=== PATIENT | male | born 1975 | race Caucasian/White ===

== ENCOUNTER 2016-07-13 12:49 | Emergency (ER) | payer BC ==
[2016-07-13 14:11] VITALS: BP 127/78
[2016-07-13] MEDS ORDERED: Ibuprofen TAB* 600 MG PO ONE (14:12)
--- NOTE | 2016-07-13 14:31 | UC ---
Knee Pain HPI - HPI Summary HPI Summary: TWISTED LEFT KNEE YESTERDAY WHILE PLAYING [employer]. HEARD A POP. FEELS UNSTABLE AND LIMPS WHEN AMBULATING. HAS SOME SWELLING. NO PREVIOUS KNEE PATHOLOGY. . - History of Current Complaint Chief Complaint: UCLowerExtremity Stated Complaint: KNEE INJURY Time Seen by Provider: 07/13/16 14:12 Hx Obtained From: Patient Onset/Duration: Sudden Onset, Lasting Hours, Still Present Severity Initially: Mild Severity Currently: Mild Pain Intensity: 2 Pain Scale Used: 0-10 Numeric Character: Sharp Aggravating Factor(s): Movement Alleviating Factor(s): Rest Associated Signs And Symptoms: Positive: Swelling - Allergies/Home Medications Allergies/Adverse Reactions: Allergies Allergy/AdvReac Type Severity Reaction Status Date / Time No Known Allergies Allergy Verified 07/13/16 14:04 Home Medications: Home Medications NK [No Home Medications Reported] 07/13/16 [History Confirmed 07/13/16] PMH/Surg Hx/FS Hx/Imm Hx Previously Healthy: Yes - Surgical History Surgical History: Yes Surgery Procedure, Year, and Place: Appendix - Family History Known Family History: Negative: Blood Disorder - Social History Alcohol Use: Rare Substance Use Type: None Smoking Status (MU): Never Smoked Tobacco Review of Systems Constitutional: Negative Skin: Negative Respiratory: Negative Cardiovascular: Negative Gastrointestinal: Negative Musculoskeletal: Arthralgia, Decreased ROM, Edema All Other Systems Reviewed And Are Negative: Yes Physical Exam Triage Information Reviewed: Yes Appearance: Well-Appearing, No Pain Distress, Well-Nourished Vital Signs: Initial Vital Signs Temp 97.7 F 07/13/16 14:05 Pulse 59 07/13/16 14:05 Resp 18 07/13/16 14:05 BP 127/78 07/13/16 14:05 Pulse Ox 100 07/13/16 14:05 Vital Signs Reviewed: Yes Eyes: Positive: Conjunctiva Clear ENT: Positive: Hearing grossly normal Neck: Positive: Supple Respiratory: Positive: No respiratory distress, No accessory muscle use Cardiovascular: Positive: Pulses Normal Abdomen Description: Positive: Soft Musculoskeletal: Positive: ROM Limited @ - LEFT KNEE, Edema @ - LEFT KNEE, Other : - NO JOINT LINE TENDERNESS OR TENDERNESS OVER ANY BONY PROMINENCES. MCL AND LCL INTACT TO STRESS TESTING. NEG LACHMANS. NEG DRAWERS SIGNS. NEG MCMURRAYS. NEG PATELLAR APPREHENSION TEST. NO TENDERNESS OVER PATELLAR LIGAMENT OR QUADRICEPS TENDON. DECREASED ROM (FLEXION). Neurological: Positive: Alert Psychological: Positive: Age Appropriate Behavior Skin: Negative: rashes Knee Pain Course/Dx - Differential Dx/Diagnosis Provider Diagnoses: LEFT KNEE SPRAIN Discharge - Discharge Plan Condition: Stable Disposition: HOME Patient Education Materials: Knee Sprain (ED) Referrals: Kishor Crews MD [Primary Care Provider] - If Needed Estelle Purdy MD [Medical Doctor] - If Needed Additional Instructions: REST, ICE, COMPRESS, ELEVATE SEEK FOLLOW-UP WITH PCP OR ORTHO IF YOUR SYMPTOMS ARE NOT IMPROVING EXPECTED OVER THE NEXT 1-2 WEEKS.
== END 2016-07-13 14:45 | disposition home or self-care (01) ==
LOC: UCEAST 12:49
DX: S83.92XA Sprain of unspecified site of left knee, initial encounter (principal); W50.2XXA Accidental twist by another person, initial encounter; Y93.74 Activity, frisbee; Y92.9 Unspecified place or not applicable
CPT/HCPCS: 99212; A9270-GY; G0463

== ENCOUNTER 2018-04-14 06:18 | Day surgery (SDC) | payer OTHER ==
[~2018-04-14 06:18] MED LIST: Buffered Lidocaine 0.9% SYRIN* 5 ML/SYR SYRINGE INTRADERM ONE; Dexamethasone IV* 4 MG/ML 1 ML (4 MG) IV SLOW PU ONE; Famotidine IV* 10 MG/ML 2 ML (20 mg) IV ONE
[2018-04-14] MEDS ORDERED: ceFAZolin 2 GM PREMIX in ORs 2 GM/50 ML BAG IVPB ONE (06:25)
[2018-04-14] MEDS ORDERED: Dexamethasone IV* 4 MG/ML 1 ML (4 MG) ONE (06:25)
[2018-04-14] MEDS ORDERED: Famotidine IV* 10 MG/ML 2 ML (20 mg) ONE (06:26)
[2018-04-14] MEDS ORDERED: Lidocain 1% EPI 1:100,000 * 30 ML MDV ONE (07:02)
[2018-04-14] MEDS ORDERED: ROPIVACAINE 5 MG/ML 30 ML BTL (0.5%) ONE (07:03)
[2018-04-14] MEDS ORDERED: Midazolam* 1 MG/ML 5 ML VIAL (5 MG) ONE (07:07)
[2018-04-14] MEDS ORDERED: fentaNYL* 50 MCG/ML 5 ML VIAL (250 MCG VIAL) ONE (07:07)
[2018-04-14] MEDS ORDERED: HYDROcodone/ACETAMIN 5-325 MG* 1 TAB PO PRN (07:28)
[2018-04-14] MEDS ORDERED: fentaNYL* 50 MCG/ML 2 ML VIAL (100 MCG VIAL) IV PRN (07:28)
[2018-04-14] MEDS ORDERED: Naloxone* 0.4 MG/ML 1 ML VIAL IV PRN (07:28)
[2018-04-14] MEDS ORDERED: Acetaminophen TAB* 325 MG PO PRN (07:28)
[2018-04-14] MEDS ORDERED: DiMENhydriNATE IV* 50 MG/ML VIAL IV PUSH PRN (07:28)
[2018-04-14] MEDS ORDERED: Ketorolac INJ* 30 MG/ML 1 ML VIAL IV PRN (07:28)
[2018-04-14] MEDS ORDERED: Ondansetron INJ* 2 MG/ML VIAL IV PRN (07:28)
[2018-04-14] MEDS ORDERED: Morphine VIAL* 4 MG/ML VIAL (1 ml vial) IV PRN (07:28)
[2018-04-14] MEDS ORDERED: Propofol* 10 MG/ML 20 ML BTL IV PUSH ONE (08:03)
[2018-04-14] MEDS ORDERED: Lidocaine 2% PF * 5 ML VIAL ONE (08:03)
[2018-04-14] MEDS ORDERED: Ondansetron INJ* 2 MG/ML VIAL ONE (09:15)
[2018-04-14] MEDS ORDERED: Ketorolac INJ* 30 MG/ML 1 ML VIAL ONE (10:13)
[2018-04-14 11:12] VITALS: BP 118/77
--- NOTE | 2018-04-16 14:33 | OP ---
CC: Primary Care Physician, Kishor Crews MD * DATE OF OPERATION: 04/14/18 - [facility] DATE OF : 71 SURGEON: Lara Salmon MD HANGER OFF: DREW Ricardo ANESTHESIOLOGIST: Dr. Vargas. PRE-OP DIAGNOSIS: Left knee grade 3 anterior cruciate ligament rupture. POST-OP DIAGNOSIS: Left knee grade 3 anterior cruciate ligament rupture with medial and lateral meniscal tears. OPERATIVE PROCEDURE: Left knee arthroscopy with anterior cruciate ligament reconstruction using quad autograft and partial lateral and partial medial meniscectomy. COMPLICATIONS: None. ESTIMATED BLOOD LOSS: Minimal. TOURNIQUET TIME: 24 minutes on 250 mmHg. IMPLANTS USED: One Nuno and Nephew SoftSilk 7 x 20 and one 10 x 25 SoftSilk. INDICATIONS: Rudy Kerr is a 42-year-old male who has had a left knee ACL injury for some time. I initially saw him in August 2016. He has had persistent pain and instability as well as some catching and locking of the knee. He was elected to proceed with surgical treatment. Risks of surgery were discussed at length included but not limited to bleeding, infection, damage to nerves, vessels, surrounding structures, wound nonhealing, persistent pain, need for surgery, scarring, stiffness, incomplete relief of symptoms and risk of anesthesia. He was elected to proceed with surgical treatments. We discussed autograft versus allograft options. He elected to proceed with autograft specifically quadriceps. DESCRIPTION OF PROCEDURE: The patient was greeted in the preoperative area by the attending surgeon. Correct extremity was marked and consent was confirmed. The patient was brought back to the operating suite where he was placed in supine position on the operating room table. He then underwent general anesthesia with LMA intubation after which he was appropriately positioned on the operating table with a small cloud bag was placed at 90 degrees and a lateral post. The left leg was then prepped and draped in the usual sterile fashion beginning with chlorhexidine soap, scrub, and alcohol wipe and a final prep with ChloraPrep. A sterile tourniquet was placed on the upper left thigh. After appropriate surgical pause indicating side, site, procedure, and administration of antibiotics, the knee was intra-articularly injected with 1% lidocaine with epi. The limb was exsanguinated and tourniquet inflated to 250 mmHg. A midline incision was centered over the quadriceps tendon was then made using 15 blade. Soft tissue was carefully dissected to expose quadriceps tendon , which was then identified. The center 9 mm was then harvested in full thickness flaps using fresh 10 blade. The bone block was then harvested for a length of about 22 mm and width of 9 mm. The graft total length was harvested to allow for at least 8 cm in length. Once this was harvested, it was prepared on the back table by the assistant food service manager. The quadriceps tendon was then closed in full thickness flaps using 0 Vicryl suture by the attending surgeon. Once this was complete, the tourniquet was deflated for a total time of 24 minutes. Attention was then directed to the arthroscopic portion of the case. The anterolateral portal was made sharply with 11 blade. The scope was introduced to the joint. The joint was examined. There was evidence of a grade 3 ACL rupture. PCL was intact. Medial compartment was then evaluated. There were grade 0 to 1 changes in the medial femoral condyle and there was evidence for degenerative type of tear. There were grade 0 to 1 changes in the medial compartment. There was an unstable medial meniscal tear that was identified and debrided back using biters and franky. The knee was then placed in figure-4 position and the lateral meniscus was identified. Lateral compartment had grade 0 to 1 changes. There is fraying of the root as well as a small radial split tear in the white-white zone. This was debrided back using franky and biters. After the partial meniscectomy was complete, attention directed to femoral joint, which had grade 0 to 1 changes. There were no loose bodies in the gutter. The knee was then placed in 90 degrees and attention was directed to the ACL. There was remaining tibial stump, which was debrided back and was attached to the PCL. This was debrided back using franky and biters. The femoral condyle was then prepared in the usual fashion using electrocautery device and shaver was used to remove any excess soft tissue to identify the femoral portion of the ACL. This was then marked with starting awl. The scope was then changed to the medial compartment to localize and identify the appropriate position of the femoral tunnel as a reference point. At this point, attention was then directed to the tibial tunnel. The tip to tip guide was placed at approximately 50 degrees and 15 blade was used to make a separate incision in the tibia to allow for placement of the centered guidewire. Soft tissues were carefully elevated and the guidewire was then placed under arthroscopic and direct visualization. Once it was placed in the appropriate position, it was then overdrilled with size 10 mm full bore reamer. Excess bone was saved for later bone graft to the patellar defect. The tunnel was then carefully rasped to remove any loose tissue and debris. The carrot was then placed to prevent fluid egress and attention was directed to the femoral portion. The graft was completed and placed under 15 pounds of tension on the back table. The attention was directed to the femoral tunnel with the knee carefully hyperflexed in a Nuno and Nephew straight guide. The Beath pin was drilled in the center of the ACL. Once appropriate position was identified, the size 9 mm low profile reamer was then drilled to a depth of about 25 mm. All excess bone and debris was removed. Tunnel was evaluated and found to be in appropriate position with good back wall. Excess bone and debris was removed. The tunnel was then notched. A #2 FiberWire was then placed through the island end of the Beath pin and then passed through the femoral condyle and out in the lateral aspect of the knee. The sutures were then passed to enter the tibial tunnel and the attention was directed to the graft. The graft was brought to the operating table and was then passed under direct and arthroscopic visualization until it was well seated in the femoral tunnel. The graft was of good quality and robust graft. The graft was then secured using 7 x 20 mm SoftSilk screw with excellent purchase. The knee was then cycled approximately 20 times to remove any creep from the graft. The knee was taken to full extension and found to have no impingement anteriorly. The graft was then cycled approximately 20 times to remove any creep from the graft. After this was done, the scope was brought back into the joint and the graft was visualized and found to be in appropriate position. Once this was done, the knee was then placed in approximately 20 degrees of flexion with tension on the tibial sutures. The tibial portion of the graft was then secured using a 10 x 25 mm Biocomposite screw with excellent purchase. The knee was then taken through full range of motion and Michelle was assessed and found to be stable. The scope was brought back to the joint and visualized the graft. It was found to be in appropriate position. Final images were obtained. The wounds were copiously irrigated with sterile saline. Bone graft was placed in the superior patellar defect and oversewn with 0 Vicryl. The soft tissues were then closed in layers with 2-0 Vicryl and proximally closed with jacquie. The portals were closed with 3-0 nylon. The tibial wound was closed in layers using 2-0 Vicryl and 3-0 Monocryl. Sterile dressings were applied. The knee was intra- articularly injected with 0.2% ropivacaine. Sterile dressings, Cryo/Cuff and a hinged knee brace were then applied. He was then awoken up from anesthesia and transferred to PACU in stable condition. POSTOPERATIVE PLAN: He will be weightbearing as tolerated. Range of motion will begin with physical therapy this week. He will be discharged on pain medication. DVT prophylaxis was considered but deferred due to no previous or personal family history. I will see the patient back in approximately 6 to 8 days. [id number]/CPS #: [id number] MTDD
== END 2018-04-14 11:09 | disposition home or self-care (01) ==
LOC: OREAST 06:18
PROVIDERS: ATTEND Orthopaedic Surgery
DX: S83.512A Sprain of anterior cruciate ligament of left knee, initial encounter (principal); S83.282A Other tear of lateral meniscus, current injury, left knee, initial encounter; X58.XXXA Exposure to other specified factors, initial encounter; Y92.9 Unspecified place or not applicable
CPT/HCPCS: 88304; C1713; J0690; J1100; J1885; J2250; J2405; J2704; J2795; J3010

== ENCOUNTER 2018-04-24 11:28 | Emergency (ER) | payer OTHER ==
--- OUTSIDE RECORDS SUMMARY | 2018-04-24 12:05 | XMS REPORT ---
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 Kishor Crews MD Primary Care Physician Unavailable Payers Type Date Identification Numbers Payment Provider Subscriber Commercial Policy Number: [id number] [employer] Rudy Kerr PayID: [id number] [address] [place] [address] Medigap Part B Expires: 2017 Policy Number: [place] [facility] Rudy Kerr [id number] PayID: [id number] [address] [place] [address] Problems Date Description Provider Status Onset: 08/09/2016 Sprain of cruciate ligament of knee Lara Salmon MD Active Family History Date Family Member(s) Problem(s) Comments General No Current Problems Social History Type Date Description Comments 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 With 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 ETOH Use Drinks 5 Alcoholic Beverages Per Week Smoking Patient has never smoked Exercise Type/Frequency Exercises regularly Allergies, Adverse Reactions, Alerts Date Description Reaction Status Severity Comments 08/09/2016 NKDA active Medications Medication Date Status Form Strength Qnty SIG Indications Ordering Provider No Active 08/09/2016 Active Adri Guardado MD Vital Signs Date Vital Result Comment 04/08/2018 Height 72.25 inches 6'0.25" Weight 223.00 lb Heart Rate 60 /min BP Systolic 138 mmHg BP Diastolic 82 mmHg Body Temperature 98.2 F Pain Level 1 left knee BMI (Body Mass Index) 30.0 kg/m2 03/06/2018 Height 72.25 inches 6'0.25" Weight 223.00 lb BP Systolic 128 mmHg BP Diastolic 68 mmHg Respiratory Rate 18 /min Pain Level 3 BMI (Body Mass Index) 30.0 kg/m2 08/09/2016 Height 72.25 inches 6'0.25" Weight 223.00 lb Heart Rate 80 /min BP Systolic Sitting 110 mmHg BP Diastolic Sitting 68 mmHg Respiratory Rate 16 /min Body Temperature 98.0 F Pain Level 1 BMI (Body Mass Index) 30.0 kg/m2 Results Description No Information Procedures Description No Information Encounters Type Date Location Provider CPT E/M Dx Office Visit 03/06/2018 [facility] [place] [address] S83.512A 2:45p [facility] Office Visit 08/09/2016 [facility] [place] [address] S83.512A 9:30a [facility] Plan of Care Future Appointment(s):04/24/2018 8:30 am - Lara Salmon MD at [facility]04/14/2018 7:30 am - Jasmin Kaiser PA-C at [facility]04/14/2018 7:30 am - Lara Salmon MD at [facility]
--- OUTSIDE RECORDS SUMMARY | 2018-04-24 12:05 | XMS REPORT ---
:1975 External Reference #:[id number] Author Organization [employer] Address [address] [place] [address] [place] [address] Phone [phone] Care Team Providers Name Role Phone Kishor Crews MD Primary Care Physician Unavailable Payers Type Date Identification Numbers Payment Provider Subscriber Commercial Policy Number: [id number] [employer] Mika Castellanos PayID: [id number] [address] [place] [address] Medigap Part B Expires: 2017 Policy Number: 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 ETOH Use Drinks 5 Alcoholic Beverages Per Week Smoking Patient has never smoked Exercise Type/Frequency Exercises regularly Allergies, Adverse Reactions, Alerts Date Description Reaction Status Severity Comments 08/09/2016 NKDA active Medications Medication Date Status Form Strength Qnty SIG Indications Ordering Provider Keflex Active Capsules 500mg 12caps take 1 Lara 018 tab by MD Luis Antonio mouth four times a day x 3 days Percocet Active Tablets 5-325mg 15tabs 1 tabs by Lara 018 mouth MD Luis Antonio every 4-6 hours as needed pain No Active Hx Deannaneb Medications 017 - MD Luis Antonio 018 Vital Signs Date Vital Result Comment 04/24/2018 Height 72.25 inches 6'0.25" Weight 223.00 lb BP Systolic 132 mmHg BP Diastolic 80 mmHg Respiratory Rate 18 /min Body Temperature 97.5 F Pain Level 2 BMI (Body Mass Index) 30.0 kg/m2 04/08/2018 Height 72.25 inches 6'0.25" Weight 223.00 [...] BMI (Body Mass Index) 30.0 kg/m2 Results Test Date Test Result H/L Range Note Laboratory test 04/14/2018 Surgical Pathology SEE RESULT BELOW 1, 2 finding 1 [id number] 2 SEE RESULT BELOW Name: MIKA CASTELLANOS : [address]: Lara Salmon MD Acct: [id number] Unit: [id number] AGE: 42 Location: [facility] Re04/14/18 SEX: M Status: KESHIA CANTU SPEC: [id number] ANIKET: 04/14/[address] [facility] DR: Lara Salmon MD REQ: [id number] RECD: 04/14/18 STATUS: SOUT _ ORDERED: LEVEL 3 COMMENTS: [id number] FINAL DIAGNOSIS Meniscus, left knee, partial excision: -- Benign synovial tissue. PRE-OPERATIVE DIAGNOSIS Sprain ACL left knee GROSS DESCRIPTION The specimen is received in formalin labeled, Portion of Meniscus Left Knee, and consists of three yellow-white irregular fibrous tissue fragments aggregating 1.1 x 0.8 x 0.2 cm which are submitted entirely in one cassette. Signed by and Reported on: Nohemy Stover MD 04/15/18 1135 END OF REPORT DEPARTMENT OF PATHOLOGY, [address] [place] [address] Florin Chauhan M.D. Director [facility] # [id number] Procedures Date CPT Code Description Status 04/14/2018 84738 Arthroscopy,Knee,ACL Reconstruction Completed 04/14/2018 50903 Arthroscopy,Knee,ACL Reconstruction Completed 04/14/2018 32153 Arthroscopy,Knee,Meniscectomy Media & Lateral Completed 04/14/2018 91079 Arthroscopy,Knee,Meniscectomy Media & Lateral Completed Encounters Type Date Location Provider CPT E/M Dx Office Visit 03/06/2018 [facility] [place] [address] S83.512A 2:45p [facility] Office Visit 08/09/2016 [facility] [place] [address] S83.512A 9:30a [facility] Plan of Care Future Appointment(s):05/15/2018 8:15 am - Lara Salmon MD at [facility]05/01/2018 2:45 pm - Lara Salmon MD at [facility]04/24/2018 - Lara Salmon [id number] Sprain of anterior cruciate ligament of left knee, subsFollow up:Follow up: 3 [id number] Localized edema
[2018-04-24 12:22] LABS: INR 1.03 (0.77-1.02)
[2018-04-24 12:28] LABS: EGFR Non-African American 91.7 (>60)
[2018-04-24 12:29] LABS: ABS Basophils 0.1 10^3/ul (0-0.2); ABS Eosinophils 0.1 10^3/ul (0-0.6); ABS Lymphocytes 1.6 10^3/ul (1.0-4.8); ABS Monocytes 0.6 10^3/ul (0-0.8); ABS Nucleated RBC 0 10^3/ul; Eosinophil % 1.4 % (0-6); Hematocrit 40 % (42-52); Hemoglobin 14.2 g/dl (14.0-18.0); Lymphocyte % 18.9 % (25-47); Mean Corpuscular HGB Conc 35 g/dl (31-36); Mean Corpuscular Hemoglobin 30 pg (27-31); Mean Corpuscular Volume 86 fL (80-94); Mean Platelet Volume 7.4 um3 (7.4-10.4); Nucleated Red Blood Cells % 0; Platelet Count 276 10^3/ul (150-450); Red Blood Count 4.67 10^6/ul (4.00-5.40); Red Cell Distribution Width 13 % (10.5-15); White Blood Count 8.5 10^3/ul (3.5-10.8)
--- NOTE | 2018-04-24 13:17 | ED ---
Lower Extremity - HPI Summary HPI Summary: Patient is a 42-year-old male who presents emergency department for evaluation of DVT and left lower leg. Patient underwent repair of left ACL about a week ago. He was seen in the orthopedic clinic today for left leg cramping. He had an outpatient ultrasound done which showed occlusive DVT involving one of the posterior tibial veins. Patient has no past medical history. He denies chest pain or shortness of breath. Symptoms are mild in severity. No current modifying factors. - History of Current Complaint Chief Complaint: EDExtremityLower Stated Complaint: IMAGING SENT OVER WITH CONF. BLOOD CLOT LEFT KNEE Time Seen by Provider: 04/24/18 11:42 Hx Obtained From: Patient Pain Intensity: 1 - Allergies/Home Medications Allergies/Adverse Reactions: Allergies Allergy/AdvReac Type Severity Reaction Status Date / Time No Known Allergies Allergy Verified 04/24/18 11:35 PMH/Surg Hx/FS Hx/Imm Hx Previously Healthy: Yes Endocrine/Hematology History: Denies: Hx Diabetes Cardiovascular History: Denies: Hx Hypertension, Hx Pacemaker/ICD History: Denies: Hx Renal Disease Musculoskeletal History: Denies: Hx Rheumatoid Arthritis, Hx Osteoporosis Sensory History: Denies: Hx Contacts or Glasses, Hx Hearing Aid Opthamlomology History: Denies: Hx Contacts or Glasses Psychiatric History: Denies: Hx Panic Disorder - Cancer History Hx Chemotherapy: No - Surgical History Surgery Procedure, Year, and Place: Appendix removed Hx Anesthesia Reactions: No Infectious Disease History: No Infectious Disease History: Denies: Traveled Outside the [place] in Last 30 Days - Family History Known Family History: Negative: Blood Disorder - Social History Occupation: Employed Full-time Lives: With Family Alcohol Use: Occasionally Substance Use Type: Reports: None Smoking Status (MU): Never Smoked Tobacco Review of Systems Cardiovascular: Negative Negative: Chest Pain Respiratory: Negative Negative: Shortness Of Breath Positive: Other - Cramping to left calf All Other Systems Reviewed And Are Negative: Yes Physical Exam Triage Information Reviewed: Yes Vital Signs On Initial Exam: Initial Vitals Temp Pulse Resp BP Pulse Ox 97.5 F 62 16 145/92 99 04/24/18 11:30 04/24/18 11:30 04/24/18 11:30 04/24/18 11:30 04/24/18 11:30 Vital Signs Reviewed: Yes Appearance: Positive: Well-Appearing - Pt. is sitting on side of bed in NAD., Well-Nourished Skin: Positive: Warm, Dry Head/Face: Positive: Normal Head/Face Inspection Eyes: Positive: Normal, EOMI, Conjunctiva Clear Neck: Positive: Supple Respiratory/Lung Sounds: Positive: Clear to Auscultation, Breath Sounds Present Cardiovascular: Positive: Normal, RRR Musculoskeletal: Positive: Other - Healing surgical incision noted to anterior left knee. Wearing brace. Mild discomfort on palpation of left calf. Good pedial pulse. Compartments are soft. Neurological: Positive: Normal, CN Intact II-III Psychiatric: Positive: Affect/Mood Appropriate Diagnostics - Vital Signs Vital Signs Temp Pulse Resp BP Pulse Ox 04/24/18 11:30 97.5 F 62 16 145/92 99 - Laboratory Lab Results: Lab Results 04/24/18 04/24/18 04/24/18 Range/Units 11:53 11:53 11:53 WBC 8.5 (3.5-10.8) 10^3/ul RBC 4.67 (4.00-5.40) 10^6/ul Hgb 14.2 (14.0-18.0) g/dl Hct 40 L (42-52) % MCV 86 (80-94) fL MCH 30 (27-31) pg MCHC 35 (31-36) g/dl RDW 13 (10.5-15) % Plt Count 276 (150-450) 10^3/ul MPV 7.4 (7.4-10.4) um3 Neut % (Auto) 71.0 (38-83) % Lymph % (Auto) 18.9 L (25-47) % [place] % (Auto) 7.5 H (0-7) % Eos % (Auto) 1.4 (0-6) % Baso % (Auto) 1.2 (0-2) % Absolute Neuts (auto) 6.0 (1.5-7.7) 10^3/ul Absolute Lymphs (auto) 1.6 (1.0-4.8) 10^3/ul Absolute Monos (auto) 0.6 (0-0.8) 10^3/ul Absolute Eos (auto) 0.1 (0-0.6) 10^3/ul Absolute Basos (auto) 0.1 (0-0.2) 10^3/ul Absolute Nucleated RBC 0 10^3/ul Nucleated RBC % 0 INR (Anticoag Therapy) 1.03 H (0.77-1.02) APTT 30.9 (26.0-36.3) seconds Sodium 138 (135-145) mmol/L Potassium 4.6 (3.5-5.0) mmol/L Chloride 104 (101-111) mmol/L Carbon Dioxide 27 (22-32) mmol/L Anion Gap 7 (2-11) mmol/L BUN 23 (6-24) mg/dL Creatinine 0.90 (0.67-1.17) mg/dL Est GFR ( Amer) 110.9 (>60) Est GFR (Non-Af Amer) 91.7 (>60) BUN/Creatinine Ratio 25.6 H (8-20) Glucose 103 H (70-100) mg/dL Calcium 9.8 (8.6-10.3) mg/dL Total Bilirubin 0.70 (0.2-1.0) mg/dL AST 18 (13-39) U/L ALT 18 (7-52) U/L Alkaline Phosphatase 74 (34-104) U/L Total Protein 7.9 (6.4-8.9) g/dL Albumin 4.6 (3.2-5.2) g/dL Globulin 3.3 (2-4) g/dL Albumin/Globulin Ratio 1.4 (1-3) Result Diagrams: 04/24/18 11:53 04/24/18 11:53 Lab Statement: Any lab studies that have been ordered have been reviewed, and results considered in the medical decision making process. Lower Extremity Course/Dx - Course Course Of Treatment: Patient presenting to ER for a known DVT. Associated with shortness of breath and is well appearing. Vital signs. Blood work is unremarkable. We'll start patient on Eliquis. Risks versus benefits were discussed. Patient encouraged to read handout material on anticoagulants. Advised patient to call his family doctor today or tomorrow to schedule a follow -up visit for additional prescriptions. We'll return to the ER if symptoms change or worsen. Patient understands and agrees with plan. - Diagnoses Differential Diagnosis/HQI/PQRI: Positive: DVT Provider Diagnoses: DVT (deep venous thrombosis) Discharge - Sign-Out/Discharge Documenting (check all that apply): Patient Departure - Discharge Plan Condition: Good Disposition: HOME Prescriptions: Apixaban* [Eliquis*] 5 mg PO BID #70 tab Patient Education Materials: Deep Vein Thrombosis (ED), Safe Use of Anticoagulants (ED), Blood Thinners (ED) Referrals: Kishor Crews MD [Primary Care Provider] - Additional Instructions: Call PCP today for a close follow up appointment Will need addition prescriptions for Eliquis Do not take NSAIDS Read patient education on anticoagulation use Return to ER if symptoms change or worsen - Billing Disposition and Condition Condition: GOOD Disposition: Home
[2018-04-24 13:38] VITALS: BP 136/84
== END 2018-04-24 13:37 | disposition home or self-care (01) ==
LOC: ED 11:28
DX: I82.442 Acute embolism and thrombosis of left tibial vein (principal)
CPT/HCPCS: 36415; 80053; 85025; 85610; 85730; 99282

== ENCOUNTER 2018-10-24 11:16 | Emergency (ER) | payer OTHER ==
--- OUTSIDE RECORDS SUMMARY | 2018-10-24 11:54 | XMS REPORT | Continuity of Care Document ---
:1975 External Reference #:[id number] Author Name Janelle Day Care Team Providers Name Role Phone Kishor Crews MD Primary Care Physician Unavailable Payers Date Identification Numbers Payment Provider Subscriber Policy Number: [id number] [employer] Mika Castellanos PayID: [id number] [address] [place] [address] Expires: 2017 Policy Number: [id number] [facility] Mika Castellanos PayID: [id number] [address] [place] [address] Advance Directives Description No Information Available Problems Active Problems Provider Date Sprain of cruciate ligament of knee Lara Salmon MD Onset: 08/09/2016 Family History Date Family Member(s) Observation Comments General No Current Problems Social History Type Date Description Comments Sex Unknown Lives With Alone 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 ETOH Use Drinks 5 Alcoholic Beverages Per Week Tobacco Use Start: Unknown Patient has never smoked Smoking Status Reviewed: 10/23/18 Patient has never smoked Exercise Type/Frequency Exercises regularly Allergies, Adverse Reactions, Alerts Description No Known Drug Allergies Medications Active Medications SIG Qnty Indications Ordering Provider Date No Active Medications Unknown 10/23/2018 History Medications Keflex take 1 tab by 12caps Lara Salmon MD 04/14/2018 - 500mg Capsules mouth four times 05/04/2018 a day x 3 days Percocet 1 tabs by mouth 15tabs Lara Salmon MD 04/14/2018 - 5-325mg Tablets every 4-6 hours 05/04/2018 as needed pain No Active Medications Lara Salmon MD 08/09/2016 - 04/14/2018 Eliquis Take 1 Tablet By Unknown - Unknown 5mg Tablets Mouth Twice A Day Immunizations Description No Information Available Vital Signs Date Vital Result Comment 10/23/2018 9:49am Height 72.25 inches 6'0.25" Weight 220.00 lb Heart Rate 72 /min BP Systolic 118 mmHg BP Diastolic 78 mmHg Pain Level 0 BMI (Body Mass Index) 29.6 kg/m2 08/07/2018 8:03am Height 72.25 inches 6'0.25" Weight 223.00 lb BP Systolic 124 mmHg BP Diastolic 80 mmHg Respiratory Rate 18 /min Pain Level 0 BMI (Body Mass Index) 30.0 kg/m2 06/05/2018 2:22pm Height 72.25 inches 6'0.25" Heart Rate 80 /min BP Systolic 132 mmHg BP Diastolic 78 mmHg Body Temperature 97.2 F Pain Level 0 05/15/2018 8:26am Height 72.25 inches 6'0.25" Weight 223.00 lb BP Systolic 130 mmHg BP Diastolic 78 mmHg Respiratory Rate 18 /min Pain Level 0 BMI (Body Mass Index) 30.0 kg/m2 05/01/2018 2:51pm Height 72.25 inches 6'0.25" Weight 223.00 lb BP Systolic 128 mmHg BP Diastolic 72 mmHg Respiratory Rate 18 /min Pain Level 0 BMI (Body Mass Index) 30.0 kg/m2 04/24/2018 8:47am Height 72.25 inches 6'0.25" Weight 223.00 lb BP Systolic 132 mmHg BP Diastolic 80 mmHg Respiratory Rate 18 /min Body Temperature 97.5 F Pain Level 2 BMI (Body Mass Index) 30.0 kg/m2 04/08/2018 8:58am Height 72.25 inches 6'0.25" Weight 223.00 lb Heart Rate 60 /min BP Systolic 138 mmHg BP Diastolic 82 mmHg Body Temperature 98.2 F Pain Level 1 left knee BMI (Body Mass Index) 30.0 kg/m2 03/06/2018 2:55pm Height 72.25 inches 6'0.25" Weight 223.00 lb BP Systolic 128 mmHg BP Diastolic 68 mmHg Respiratory Rate 18 /min Pain Level 3 BMI (Body Mass Index) 30.0 kg/m2 08/09/2016 9:49am Height 72.25 inches 6'0.25" Weight 223.00 lb Heart Rate 80 /min BP Systolic Sitting 110 mmHg BP Diastolic Sitting 68 mmHg Respiratory Rate 16 /min Body Temperature 98.0 F Pain Level 1 BMI (Body Mass Index) 30.0 kg/m2 Results Test Date Facility Test Result H/L Range Note Laboratory test 04/14/2018 [facility] Surgical SEE RESULT 1 , [address] [place] [address] [phone] 1 [id number] 2 SEE RESULT BELOW Name: MIKA CASTELLANOS : [address]: Lara Salmon MD Acct: [id number] Unit: [id number] AGE: 42 Location: [facility] Re04/14/18 SEX: M Status: [facility] SPEC: [id number] ANIKET: 04/14/[address] [facility] [address]: Lara Salmon MD REQ: [id number] RECD: 04/14/18 STATUS: SOUT _ ORDERED: LEVEL 3 COMMENTS: [id number] FINAL DIAGNOSIS Meniscus, left knee, partial excision: [...] 1135 END OF REPORT DEPARTMENT OF PATHOLOGY, [address] [place] [address] Florin Chauhan M.D. Director [facility] # [id number] Procedures Date Code Description Status 06/16/2018 24714 Repair Complex Wound 2.6-7.5CM Scalp/Arm/Leg Completed 06/16/2018 34519 Excise Malig Lesion 3.1-4CM Trunk/Arm/Leg Completed 05/13/2018 50350 Biopsy Skin Lesion Single Completed 04/14/2018 88267 Arthroscopy,Knee,ACL Reconstruction Completed 04/14/2018 33148 Arthroscopy,Knee,ACL Reconstruction Completed 04/14/2018 98146 Arthroscopy,Knee,Meniscectomy Media & Lateral Completed 04/14/2018 18264 Arthroscopy,Knee,Meniscectomy Media & Lateral Completed Encounters Type Date Location Provider Dx Diagnosis Office Visit 08/07/2018 [facility] Lara Salmon MD S83.512D Sprain of 8:00a Of [facility] anterior cruciate ligament of left knee, subs Office Visit 05/13/2018 [facility] Angel Rodriguez MD B35.3 Tinea pedis 7:50a B35.4 Tinea corporis L30.8 Other specified dermatitis L91.8 Other hypertrophic disorders of the skin L98.9 Disorder of the skin and subcutaneous tissue, unspecified Office Visit 03/06/2018 2:45p Orthopedic Lara Salmon, S83.512A Sprain of Services Of MD daniele YadavM.AVonda cruciate ligament of left knee, init Office Visit 08/09/2016 9:30a Orthopedic Lara Salmon, S83.512A Sprain of Services Of MD daniele YadavMMo cruciate ligament of left knee, init Plan of Treatment Future Appointment(s):12/09/2018 8:30 am - Lara Salmon MD at [facility]12/15/2018 8:00 am - Angel Rodriguez MD at [facility] Ruodcanmzfq28/13 /2019 8:00 am - Angel Rodriguez MD at [facility] Vshhpxoihmz58/25/2019 - Lara Salmon, MDS83.512D Sprain of anterior cruciate ligament of left knee, subsequenFollow up :Follow up: 6 weeks
[2018-10-24 12:04] VITALS: BP 148/88
--- NOTE | 2018-10-24 12:23 | UC ---
Upper Extremity HPI - HPI Summary HPI Summary: Last evening was reaching under a table to pull up a cord, and in the process of pulling, felt a pop in his arm. noted deformity in R arm muscle. + pain. He is concerned b/c he is going out of town for 10 days, mid-week next week. Took nsaid last night, not yet today. No p/d. Pt is R handed. No neck pain. No contralateral arm pain. - History of Current Complaint Chief Complaint: UCUpperExtremity Stated Complaint: R ARM COMPLAINT Time Seen by Provider: 10/24/18 12:21 Hx Obtained From: Patient Pain Intensity: 6 - Allergies/Home Medications Allergies/Adverse Reactions: Allergies Allergy/AdvReac Type Severity Reaction Status Date / Time No Known Allergies Allergy Verified 10/24/18 12:04 Home Medications: Home Medications NK [No Home Medications Reported] 10/24/18 [History Confirmed 10/24/18] PMH/Surg Hx/FS Hx/Imm Hx Previously Healthy: Yes - acl surgery < 1 year left - Surgical History Surgical History: Yes Surgery Procedure, Year, and Place: Appendix removed - Family History Known Family History: Negative: Blood Disorder - Social History Alcohol Use: Occasionally Substance Use Type: None Smoking Status (MU): Never Smoked Tobacco Review of Systems All Other Systems Reviewed And Are Negative: Yes Constitutional: Positive: Negative Skin: Positive: Negative Eyes: Positive: Negative ENT: Positive: Negative Respiratory: Positive: Negative Cardiovascular: Positive: Negative Gastrointestinal: Positive: Negative Genitourinary: Positive: Negative Motor: Positive: Other - L arm pain, deformity Neurovascular: Positive: Other Musculoskeletal: Positive: Arthralgia, Myalgia Neurological: Positive: Negative Psychological: Positive: Negative Is Patient Immunocompromised?: No Physical Exam Triage Information Reviewed: Yes Appearance: Well-Appearing, Well-Nourished Vital Signs: Initial Vital Signs Temp 98.4 F 10/24/18 12:01 Pulse 58 10/24/18 12:01 Resp 16 10/24/18 12:01 BP 148/88 10/24/18 12:01 Pulse Ox 100 10/24/18 12:01 Vital Signs Reviewed: Yes Eye Exam: Normal ENT Exam: Normal Neck exam: Normal Neck: Positive: Supple, Nontender Respiratory Exam: Normal - rr normal, no tachypnea, no dyspnea Cardiovascular Exam: Normal - hr normal, nondiaphoretic Abdominal Exam: Normal Abdomen Description: Positive: Nontender Musculoskeletal Exam: Other - + bicep deformity. + tender medial insertion. No post elbow tender. Able to straighten elbow out, slowly. R/U pp palp. CR good. Moves hand / wrist / shoulder ok. Neurological Exam: Normal Psychological Exam: Normal Skin Exam: Normal - no visible or reported rash, no bruising Upper Extremity Course/Dx - Course Course Of Treatment: XRay reports reviewed with pt. Reviewed coa / tx plan. 13:35 D/w PA orthopedics. F/u orthopedics - Differential Dx/Diagnosis Provider Diagnosis: Biceps tendon rupture Discharge - Sign-Out/Discharge Documenting (check all that apply): Patient Departure All imaging exams completed and their final reports reviewed: Yes - Discharge Plan Condition: Stable Disposition: HOME Patient Education Materials: Tendon Rupture (ED) Referrals: Shila Lamas MD [Medical Doctor] - Kishor Crews MD [Primary Care Provider] - Additional Instructions: Please go directly to orthopedic appointment. - Billing Disposition and Condition Condition: STABLE Disposition: Home
== END 2018-10-24 13:45 | disposition home or self-care (01) ==
LOC: UCEAST 11:16
DX: S46.211A Strain of muscle, fascia and tendon of other parts of biceps, right arm, initial encounter (principal); X50.1XXA Overexertion from prolonged static or awkward postures, initial encounter; Y92.9 Unspecified place or not applicable; M19.011 Primary osteoarthritis, right shoulder
CPT/HCPCS: 99212; G0463

== ENCOUNTER 2018-11-12 09:02 | Day surgery (SDC) | payer OTHER ==
[~2018-11-12 09:02] MED LIST changes: -Buffered Lidocaine 0.9% SYRIN* 5 ML/SYR SYRINGE INTRADERM ONE; +Buffered Lidocaine 1% SYRIN* 1 ML/SYRINGE INTRADERM ONE; -Dexamethasone IV* 4 MG/ML 1 ML (4 MG) IV SLOW PU ONE; -Famotidine IV* 10 MG/ML 2 ML (20 mg) IV ONE; +Lactated Ringers 1000 ML Bag* 1,000 ML IV SCH
[2018-11-12] MEDS ORDERED: ceFAZolin 2 GM PREMIX in ORs 2 GM/50 ML BAG IVPB ONE (09:07)
[2018-11-12] MEDS ORDERED: Propofol* 10 MG/ML 20 ML BTL ONE (11:40)
[2018-11-12] MEDS ORDERED: Lidocaine 2% PF * 5 ML VIAL ONE (11:40)
[2018-11-12] MEDS ORDERED: Midazolam* 1 MG/ML 2 ML VIAL (2 MG) ONE (11:40)
[2018-11-12] MEDS ORDERED: fentaNYL* 50 MCG/ML 2 ML VIAL (100 MCG VIAL) ONE (11:40)
[2018-11-12] MEDS ORDERED: DiMENhydriNATE IV* 50 MG/ML VIAL IV PUSH PRN (11:47)
[2018-11-12] MEDS ORDERED: Naloxone* 0.4 MG/ML 1 ML VIAL IV PRN (11:47)
[2018-11-12] MEDS ORDERED: fentaNYL* 50 MCG/ML 2 ML VIAL (100 MCG VIAL) IV PRN (11:47)
[2018-11-12] MEDS ORDERED: Lidocaine 1% MPF wEPI 200,000* 30 ML SDV ONE ×2 (11:48→13:26)
[2018-11-12] MEDS ORDERED: Atropine 1MG/ML INJ* 1 ML VIAL ONE (13:24)
[2018-11-12] MEDS ORDERED: Ketorolac INJ* 30 MG/ML 1 ML VIAL ONE (13:24)
[2018-11-12] MEDS ORDERED: Ondansetron INJ* 2 MG/ML VIAL ONE (13:24)
[2018-11-12] MEDS ORDERED: oxyCODONE/Acetamin 5/325 MG* TAB ONE (14:16)
[2018-11-12 15:04] VITALS: BP 136/93
--- NOTE | 2018-11-13 01:48 | OP ---
DATE OF OPERATION: 11/12/18 - LOCATED WITHIN [facility] DATE OF : 71 SURGEON: Juan Cifuentes MD MATERIAL HAULER: DREW Jack. A physician sales and marketing assistant was required for the length of procedure for assistance with patient positioning, retraction, and closure. ANESTHESIOLOGIST: Dr. Uvaldo Lewis. ANESTHESIA: General anesthesia, local anesthesia with 6 cc of lidocaine with epinephrine. PRE-OP DIAGNOSIS: Right distal biceps tendon tear. POST-OP DIAGNOSIS: Right distal biceps tendon tear. OPERATIVE PROCEDURE: Right open distal biceps repair. ANTIBIOTICS: Ancef 2 g IV. IV FLUIDS: See anesthesia note. TOURNIQUET TIME: 79 minutes at 250 mmHg, right upper arm. BTHR-MH-AITD TIME: 76 minutes. RADIATION EXPOSURE: Mini C-arm utilized. Amount of time in radiation exposure not yet available. SPECIMEN: None. IMPLANTS: Arthrex distal biceps set, distal biceps button, metal, and biocomposite interference screw. ESTIMATED BLOOD LOSS: Minimal. COMPLICATIONS: None. 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 The patient went to urgent care that day and then saw a partner of mine on 10/24/18. He then saw me on 10/28/18. I confirmed the diagnosis based on physical exam and history of a right distal biceps tendon tear. I spoke to him about nonoperative and operative treatment options, pros and cons, risks and complications of each. I spoke about generally like to do surgery within 2 weeks of injury for technical ease and to minimize the amount of retraction and tightness of the tendon repair. The patient had an important social event, vacation, so we agreed to delay the surgery until 20 days post injury. I spoke about range of potential complications including most commonly , some tingling or decreased sensation in the distribution of the lateral antebrachial cutaneous nerve. The patient opted for surgery. DESCRIPTION OF PROCEDURE: In the preoperative holding, the patient signed a written consent. Operative extremity was marked in the preoperative holding. The patient was taken back to the operating room and kept on the stretcher. Hand table was applied. Anesthesia applied and LMA. Right upper extremity was prepped and draped. Surgical time-out performed. A sterile tourniquet was placed on the right upper arm. Esmarch was applied and the tourniquet was elevated to 250 mmHg. I started with a 4 cm longitudinal incision overlying the bicipital tuberosity. During the case, I extended this about 5 to 10 mm proximally and distally. I dissected down through the subcutaneous tissue. The patient had some very large and very branched superficial vessels but I was actually able to look around all of these without tying any of them off. Dissected down through the appropriate interval between brachioradialis and pronator teres. Identified the leash of Terry. I placed 3 stitches around it using Vicryl 3-0 suture. I then cauterized the leash and cut them with the scissors. I may have encountered while doing this with Erlinda, more radial, the superficial radial nerve or branch of it. This was protected and retracted radially. I then dissected off a bicipital tuberosity. Clearing it off with periosteal elevator and rongeur. Forearm are very hypersupinated when appropriate retractors were placed around the proximal radius. Next, I turned my attention proximally. We have a blunt dissection with my fingers. I was able to feel up into the upper arm and locate the distal biceps tendon. I pulled this into the forearm with an Allis. It was quite bulbous distally. I excised about less than 1 cm of the distal end of the tendon. I placed a stitch in it and incised it to 7 mm. I next placed multiple whipstitches, at least 4 or 5 using a FiberLoop. I next pulled the biceps deep to all the superficial crossing blood vessels to the appropriate plane of the anatomic biceps tendon down to the tuberosity. I returned to the bicipital tuberosity. Placed a pin. Obtained mini C-arm images, which confirmed the location of the pin. It was in the bicipital tuberosity, although in the proximal component of it. I next drilled, an 8 mm tunnel, unicortical. Irrigation to remove all bone debris. I loaded the suture from the biceps tendon on to the button. I placed and then flipped the button. It was clear from before I loaded the button that the biceps tendon was quite tight so that forced us to do much of the work of passing the button, flipping it and then tightening the tendon into a position where the elbow was in approximately 70 degrees of flexion. I tied a knot. Before tying a knot, I confirmed the placement of the button directly on bone with a mini C-arm image. I next placed a biocomposite 7 x 10 mm screw in the drill hole. I placed a suture through it and then tied the suture. Irrigation. Closed the subcutaneous layer with buried simple stitches using Vicryl 3-0 suture. Running closure of the skin with a nylon 4-0 suture. Some local anesthesia 6 cc injected in the subcutaneous tissues. Xeroform, 4x4s, sterile Webril. Tourniquet was dropped. Placed a posterior splint followed by a sugar- tong splint of the forearm, each with plaster, overwrapped with an Jae bandage. This would be a forearm in supination. I placed the right arm in sling. The patient was awakened, LMA removed, and transferred to the PACU. DISPOSITION: The patient was discharged home when medically stable. The patient has a scheduled appointment in 10 to 14 days postoperatively, but I welcomed him to come in 1 week postoperative if he wants to, to be removed from his splint and transitioned into an elbow brace. We gave him prescriptions for Percocet for pain control, Valium for muscle spasm, a shoulder prescription of antibiotioc to prevent infection. We also gave the patient a sling to use as needed and I encouraged him to use at the first several nights postoperative, as his biceps tendon was quite tight and so I think resting and elevating that elbow in full flexion will provide him comfort. [id number]/CPS #: [id number] MTDD
== END 2018-11-12 15:14 | disposition home or self-care (01) ==
LOC: OR 09:02
PROVIDERS: ATTEND Orthopaedic Surgery
DX: S46.211A Strain of muscle, fascia and tendon of other parts of biceps, right arm, initial encounter (principal); X50.0XXA Overexertion from strenuous movement or load, initial encounter; Y93.89 Activity, other specified; Y92.9 Unspecified place or not applicable; Z68.30 Body mass index [BMI] 30.0-30.9, adult
CPT/HCPCS: 76000; A9270-GY; C1713; J0461; J0690; J1885; J2001; J2250; J2405; J2704; J3010

== ENCOUNTER 2019-06-18 08:42 | Emergency (ER) | payer OTHER ==
--- OUTSIDE RECORDS SUMMARY | 2019-06-18 08:47 | XMS REPORT | Continuity of Care Document ---
:1975 External Reference #:[id number] Author Name Juan Cifuentes MD (transmitted by agent of provider Maren Devine) Address [address] [place] [id number] Care Team Providers Name Role Phone Kishor Crews MD - Family Care Team Information Rubber Goods Inspector Tester [phone] Medicine Problems Active Problems Provider Date Sprain of cruciate ligament of knee Lara Salmon MD Onset: 08/09/2016 Knee joint effusion Lara Salmon MD Onset: 11/21/2018 Social History Type Date Description Comments Sex Unknown ETOH Use Drinks 5 Alcoholic Beverages Per Week Tobacco Use Start: Unknown Patient has never smoked Smoking Status Reviewed: 06/11/19 Patient has never smoked Exercise Type/Frequency Exercises regularly Allergies, Adverse Reactions, Alerts Description No Known Drug Allergies Medications Description No Active Medications Immunizations Description No Information Available Vital Signs Date Vital Result Comment 06/11/2019 9:06am Height 73 inches 6'1" Weight 227.00 lb Heart Rate 60 /min BP Systolic 120 mmHg BP Diastolic 82 mmHg Respiratory Rate 14 /min Body Temperature 97.6 F Pain Level 0 BMI (Body Mass Index) 29.9 kg/m2 01/22/2019 8:11am Height 72 inches 6'0" Weight 220.00 lb Heart Rate 72 /min BP Systolic 122 mmHg BP Diastolic 70 mmHg Respiratory Rate 12 /min Pain Level 0 BMI (Body Mass Index) 29.8 kg/m2 Results Description No Information Available Procedures Description No Information Available Medical Devices Description No Information Available Encounters Type Date Location Provider Dx Diagnosis Office Visit 01/13/2019 [facility] Lara Salmon MD S83.512D Sprain of 8:15a at [place] anterior cruciate ligament of left knee, subs Assessments Date Code Description Provider 06/11/2019 S46.211D Strain of muscle, fascia and tendon of Juan Cifuentes MD other parts of biceps 01/22/2019 S46.211D Strain of muscle, fascia and tendon of Juan Cifuentes MD other parts of biceps 01/13/2019 S83.512D Sprain of anterior cruciate ligament of Lara Salmon MD left knee, subsequen 12/24/2018 S46.211D Strain of musc/fasc/tend prt biceps, right Juan Cifuentes MD arm, subs Plan of Treatment Future Appointment(s):06/18/2019 8:00 am - Angel Rodriguez MD at [facility] Fgiqpbypzph95/12/2019 - Juan Cifuentes MDS46.211D Strain of muscle, fascia and tendon of other parts of bicepsFollow up:Follow up: as needed Functional Status Description No Information Available Mental Status Description No Information Available Referrals Description No Information Available
[2019-06-18 08:50] VITALS: BP 152/90
--- NOTE | 2019-06-18 09:12 | UC ---
Throat Pain/Nasal Reji HPI - HPI Summary HPI Summary: 44-year-old male comes in with a chief complaint of upper respiratory tract infection symptoms for 2 weeks. Patient's had rhinorrhea and it's been yellow she's having sinus pressure. Feels postnasal drip and sore throat. Does have some chest congestion. He feels like postnasal drip from the sinuses is the main cause for the sore throat and that's his primary symptom. No fevers measured. He has been using Sudafed but he stopped that a couple days ago as he was wondering if it was making it worse. - History of Current Complaint Chief Complaint: UCRespiratory Stated Complaint: SORE THROAT Time Seen by Provider: 06/18/19 09:03 Pain Intensity: 0 - Allergies/Home Medications Allergies/Adverse Reactions: Allergies Allergy/AdvReac Type Severity Reaction Status Date / Time No Known Allergies Allergy Verified 06/18/19 08:51 Home Medications: Home Medications Pseudoephedrine HCl [Sudafed] 1 tab PO ONCE PRN 06/18/19 [History Confirmed ] PMH/Surg Hx/FS Hx/Imm Hx Previously Healthy: Yes - Surgical History Surgical History: Yes Surgery Procedure, Year, and Place: Appendix removed. ACL LEFT KNEE 03/2018. bicep tendon repair - Family History Known Family History: Negative: Blood Disorder - Social History Alcohol Use: Occasionally Substance Use Type: None Smoking Status (MU): Never Smoked Tobacco Review of Systems All Other Systems Reviewed And Are Negative: Yes Constitutional: Positive: Other - see hpi Skin: Positive: Negative Eyes: Positive: Negative ENT: Positive: Sore Throat, Nasal Discharge, Sinus Congestion, Sinus Pain/ Tenderness Respiratory: Positive: Other - see hpi Cardiovascular: Positive: Negative Gastrointestinal: Positive: Negative Motor: Positive: Negative Neurovascular: Positive: Negative Musculoskeletal: Positive: Negative Neurological: Positive: Negative Psychological: Positive: Negative Is Patient Immunocompromised?: No Physical Exam Triage Information Reviewed: Yes Appearance: Well-Appearing, No Pain Distress, Well-Nourished Vital Signs: Initial Vital Signs Temp 97.4 F 06/18/19 08:46 Pulse 64 06/18/19 08:46 Resp 18 06/18/19 08:46 BP 152/90 06/18/19 08:46 Pulse Ox 97 06/18/19 08:46 Vital Signs Reviewed: Yes Eye Exam: Normal Eyes: Positive: Conjunctiva Clear ENT: Positive: Pharyngeal erythema, Nasal congestion, TMs normal Neck: Positive: Supple Respiratory: Positive: Lungs clear, Normal breath sounds, No respiratory distress Cardiovascular: Positive: RRR Musculoskeletal: Positive: Strength Intact, ROM Intact Neurological: Positive: Alert, Muscle Tone Normal Psychological: Positive: Age Appropriate Behavior Skin Exam: Normal Throat Pain/Nasal Course/Dx - Differential Dx/Diagnosis Provider Diagnosis: Sinusitis Discharge ED - Sign-Out/Discharge Documenting (check all that apply): Patient Departure All imaging exams completed and their final reports reviewed: No Studies - Discharge Plan Condition: Stable Disposition: HOME Prescriptions: Amoxicillin PO (*) [Amoxicillin 875 MG (*)] 875 mg PO BID #20 tab Fluticasone NASAL SPRAY 50MCG* [Flonase NASAL SPRAY 50MCG*] 2 spray BOTH NARES DAILY #1 btl Patient Education Materials: Sinusitis (ED) Referrals: Kishor Crews MD [Primary Care Provider] - Additional Instructions: FOLLOW UP WITH YOUR DOCTOR IF NOT COMPLETELY IMPROVED. GET REEVALUATED SOONER IF NOT IMPROVED OR WORSE OR ANY QUESTIONS OR CONCERNS. - Billing Disposition and Condition Condition: STABLE Disposition: Home
== END 2019-06-18 09:20 | disposition home or self-care (01) ==
LOC: UCEAST 08:42
DX: J32.9 Chronic sinusitis, unspecified (principal); J02.9 Acute pharyngitis, unspecified
CPT/HCPCS: 99212; G0463